=== PATIENT | male | born 1990 | race Caucasian/White ===

== ENCOUNTER 2019-07-29 20:04 | Emergency (ER) | payer OTHER, SELFPAY ==
--- NOTE | ~2019-07-29 | XR_ITS ---
XR hand RT min 3V, XR wrist RT min 3V 07/29/2019 20:25 (accession [id number]), 07/29/2019 20:26 (accession [id number]) INDICATION: Right hand and wrist pain PROCEDURE: 3 views right hand and 4 views right wrist COMPARISON: No prior studies for comparison. FINDINGS: There is a nondisplaced fracture base of the fifth metacarpal. There is moderate soft tissu e swelling adjacent to the fracture. No foreign bodies are identified. IMPRESSION: 1: Nondisplaced fracture proximal aspect of the fifth metacarpal. Reviewed, dictated and finalized at location A. IMPRESSION: 1: Nondisplaced fracture proximal aspect of the fifth metacarpal.
[2019-07-29 20:09] VITALS: BP 128/72; PULSE 99; RESP 20; TEMP 36.6; O2SAT 99
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
[2019-07-29] MEDS: IBUPROFEN 600 MG TABLET PO (21:25)
== END 2019-07-29 21:30 | disposition home or self-care (01) ==
PROVIDERS: Emergency Provider Emergency Medicine
DX: S62.346A Nondisplaced fracture of base of fifth metacarpal bone, right hand, initial encounter for closed fracture (principal); J44.9 Chronic obstructive pulmonary disease, unspecified; G47.30 Sleep apnea, unspecified; F17.200 Nicotine dependence, unspecified, uncomplicated; W23.0XXA Caught, crushed, jammed, or pinched between moving objects, initial encounter
CPT/HCPCS: 29125; 73110; 73130; 99284; A4565; A9270